=== PATIENT | female | born 1980 | race Caucasian/White ===

== ENCOUNTER 2018-04-09 23:41 | Inpatient (IN) | payer OTHER ==
[2018-04-10] MEDS ORDERED: ceFAZolin IN SWFI 2 GM/20 ML SYRINGE IVP ONE (00:08)
[2018-04-10] MEDS ORDERED: LACTATED RINGERS 1,000 ML IV ONE (00:08)
[2018-04-10] MEDS ORDERED: CITRIC ACID-SODIUM CITRATE 15 ML CUP PO ONE (00:08)
[2018-04-10] MEDS: LACTATED RINGERS 1,000 ML IV SCH ×6 (00:34→20:54)
[2018-04-10 00:39] VITALS: BMI 33.3
--- NOTE | 2018-04-10 00:45 | P.HPOB ---
History of Present Illness H&P Date: 04/10/18 Chief Complaint: Rupture of membranes at 37-5/7 weeks gestation This is a 37-year-old 3 para 1011 woman with an estimated due date of based on first trimester ultrasound who presents with spontaneous rupture of membranes and irregular painful contractions. Her obstetric history significant for previous low transverse section and she is declining trial of labor. She desires repeat section and bilateral tubal ligation. Her has otherwise been uncomplicated. Upon presentation to labor and delivery triage on rupture of membranes is confirmed. She is 1 cm dilated and the cervix is thick. She is maria t every 2-4 minutes spontaneously. heart tones are reactive. Obstetric history: Primary low transverse section in 2005 at 38 weeks for failure to progress. Complicated by postoperative wound infection. Laboratory data: Blood type B positive, antibody screen negative, rubella immune , VDRL nonreactive, hepatitis B surface antigen negative, HIV negative, glucose tolerance testing within normal limits, group B strep culture negative. Review of Systems All systems: negative Past Medical History Past Medical History: No Reported History History of Any Multi-Drug Resistant Organisms: None Reported Past Surgical History: Section Past Anesthesia/Blood Transfusion Reactions: No Reported Reaction Past Psychological History: No Psychological Hx Reported Smoking Status: Never smoker - Past Family History Father Family Medical History: Cancer Medications and Allergies Home Medications Medication Instructions Recorded Confirmed Type No Known Home Medications 04/09/18 04/09/18 History Allergies Allergy/AdvReac Type Severity Reaction Status Date / Time No Known Allergies Allergy Verified 04/09/18 23:59 Exam Vital Signs Temp Pulse Resp BP Pulse Ox 04/10/18 00:20 97.3 F L 79 16 162/72 99 Intake and Output 04/09/18 04/09/18 04/10/18 14:59 22:59 06:59 Other: Weight 82.554 kg This is a uncomfortable, actively laboring female who is visibly gravid. Targeted physical exam is performed. The cervix is 1 cm dilated there was copious amniotic fluid noted. heart tones are reactive. Assessment and Plan (1) Advanced maternal age (AMA) in Current Visit: Yes Status: Acute Code(s): [id number] - SNOMED Code(s): 448576856 (2) History of Current Visit: Yes Status: Acute Code(s): Z98.891 - HISTORY OF UTERINE SCAR FROM PREVIOUS SURGERY SNOMED Code(s): 198812010 (3) Family planning Current Visit: Yes Status: Acute Code(s): Z30.09 - ENCOUNTER FOR OT GENERAL CNSL AND ADVICE ON CONTRACEPTION SNOMED Code(s): 828393848 (4) Spontaneous rupture of membranes Current Visit: Yes Status: Acute Code(s): QHR3161 - SNOMED Code(s): 590635808 Plan: 37-year-old 3 para 1011 woman who presents at 37-5/7 weeks gestation with spontaneous rupture of membranes in early active labor. History of previous low transverse section. She declines trial of labor and requests repeat low transverse section. She desires no further pregnancies and has consented to bilateral tubal ligation. The alternatives for contraception have been reviewed with the patient in the office setting. Risks of the procedure have been reviewed and include bleeding, infection, injury to bowel, bladder, ureters, infant and/or other internal structures. The patient understands these risks and has given consent.
[2018-04-10 00:53] LABS: Basophils # (A) 0.1 k/uL (0-0.2); Basophils % (A) 1 %; Eosinophils # (A) 0.2 k/uL (0-0.7); Eosinophils % (A) 2 %; HCT 38.6 % (34.0-46.0); HGB 12.7 gm/dL (11.4-16.0); Lymphocytes # (A) 2.5 k/uL (1.0-4.8); Lymphocytes % (A) 24 %; MCV 90.9 fL (80.0-100.0); Mean Platelet Volume 7.6; Monocytes # (A) 0.6 k/uL (0-1.0); Monocytes % (A) 5 %; Neutrophils % (A) 66 %; Platelet Count 167 k/uL (150-450); RBC 4.25 m/uL (3.80-5.40); RDW 13.1 % (11.5-15.5); WBC 10.6 k/uL (3.8-10.6)
[2018-04-10] MEDS ORDERED: OXYTOCIN 10 UNIT/ML 1 ML VIAL ONE (01:09)
[2018-04-10] MEDS ORDERED: MORPHINE SULFATE (PF) 0.3 MG/0.3 ML SYR ONE (01:09)
[2018-04-10] MEDS ORDERED: DEXAMETHASONE SOD PHOS (MDV) 100 MG/10 ML VIAL ONE (01:09)
[2018-04-10] MEDS ORDERED: ONDANSETRON 4 MG/2 ML VIAL ONE (01:09)
[2018-04-10] MEDS ORDERED: ePHEDrine SULFATE/0.9% NACL/PF 50 MG/5 ML SYRINGE IV ONE (01:09)
[2018-04-10] MEDS ORDERED: KETOROLAC 30 MG/ML 1 ML VIAL ONE (01:09)
[2018-04-10] MEDS ORDERED: ACETAMINOPHEN TAB 325 MG TAB PO PRN (01:53)
[2018-04-10] MEDS ORDERED: METOCLOPRAMIDE 5 MG/ML 2 ML VIAL IVP PRN (01:53)
[2018-04-10] MEDS ORDERED: NALOXONE 0.4 MG/ML 1 ML VIAL IV PRN (01:53)
[2018-04-10] MEDS ORDERED: diphenhydrAMINE 50 MG/ML 1 ML VIAL IVP PRN ×2 (01:53)
[2018-04-10] MEDS ORDERED: ONDANSETRON 4 MG/2 ML VIAL IVP PRN (01:53)
[2018-04-10] MEDS ORDERED: ZOLPIDEM 5 MG TAB PO PRN (01:53)
[2018-04-10] MEDS ORDERED: diphenhydrAMINE 50 MG CAP PO PRN (01:53)
[2018-04-10] MEDS ORDERED: diphenhydrAMINE 25 MG CAP PO PRN (01:53)
--- NOTE | 2018-04-10 01:53 | P.OP ---
Date of Procedure: 04/10/18 Preoperative Diagnosis: Spontaneous rupture of membranes at 37-5/7 weeks gestation History of previous low transverse section, desires repeat Desires permanent sterility Advanced maternal age Postoperative Diagnosis: Same Procedure(s) Performed: Repeat low transverse section and bilateral tubal ligation with Filshie clips Anesthesia: spinal Surgeon: Loraine Bhat Light Fixture Servicer #1: Hank Perdomo Estimated Blood Loss (ml): 500 IV fluids (ml): 1,000 Urine output (ml): 300 Pathology: none sent (Placenta) Condition: stable Disposition: PACU Indications for Procedure: Rupture of membranes with history of previous section desiring repeat Operative Findings: Female in the vertex occiput transverse position with a nuchal cord 1. Apgars of 9 at 1 minute and 9 at 5 minutes weighing 7 lbs. 3 oz., 3270 g. Intact, three-vessel cord placenta. Normal-appearing uterus, bilateral fallopian tubes and ovaries Description of Procedure: After the patient was met preoperatively and all questions were answered, she was taken to the operating room where spinal anesthetic was administered without incident. She was then positioned, prepped and draped in the dorsal supine position with a leftward tilt. Trinh catheter was placed. After anesthetic was confirmed adequate, a low transverse skin incision was made following the pre-existing scar. This was carried down to the underlying fascia both sharply and with the electrocautery. The fascia was then incised in the midline and extended bilaterally with the Van scissors. The superior aspect of the fascial incision was elevated and the underlying rectus muscles dissected off sharply and with the electrocautery. The inferior aspect of the fascial incision was also elevated and the underlying rectus muscles dissected off sharply. The muscles were adherent in the midline. These were bluntly and the peritoneum was tented up with hemostats. The peritoneum was entered sharply with the Metzenbaum scissors. The peritoneal incision was extended inferiorly and superiorly with good visualization of the bladder. The bladder blade was placed. The vesicouterine peritoneum was identified, tented up and entered sharply, the bladder flap was created both sharply and digitally. A low transverse uterine incision was then made sharply and carried down to the underlying amniotic membranes. Membranes were ruptured and clear fluid was noted. The uterine incision was extended bilaterally bluntly. The 's head was delivered from the incision without difficulty. Nuchal cord 1 was reduced. The nose and mouth were bulb suctioned. The rest of the infant was delivered onto the field without difficulty. And cut and the infant was taken to the warmer. An intact, three-vessel cord placenta was then manually removed and the uterus was exteriorized. The uterus was cleared of all clot and debris. The uterine incision was delineated with Sears clamps. The uterine incision was then closed in a running locked fashion with 0 Vicryl suture. Additional [id number] sutures were placed where necessary along the incision for hemostasis. The right and left fallopian tubes were positively identified and carried out to the fimbriated ends. Filshie clip clips were then applied in the mid ampullary portion of the tubes completely transecting each tube. The uterus was then returned to the abdomen and the gutters were cleared of all clot and debris. The uterine incision was reinspected and Bovie electrocautery was utilized were necessary for hemostasis. The fascial edges, peritoneal edges and rectus muscles were inspected and Bovie electrocautery utilized were necessary for hemostasis. The fascia was then closed in a running fashion with 0 Vicryl suture. The subcuticular tissue was copiously suction irrigated and Bovie electrocautery utilized were necessary for hemostasis. 3-0 Vicryl suture was utilized to reapproximate the subcuticular tissue. The skin was then closed in a subcutaneous fashion with 4-0 Vicryl suture. All counts reported to me as correct by the operating room staff at the end of the procedure. The patient received antibiotics preoperatively and Pitocin following cord clamp. Mother and infant were both transported from the room in stable condition.
[2018-04-10] MEDS ORDERED: OXYTOCIN 20 UNITS/1000 ML NS 1,000 ML IV SCH (02:00)
[2018-04-10] MEDS: SENNOSIDES-DOCUSATE SODIUM 1 EACH TAB PO SCH ×2 (09:22→20:54)
[2018-04-10] MEDS: ceFAZolin IN SWFI 2 GM/20 ML SYRINGE IVP SCH ×2 (09:31→16:43)
[2018-04-10] MEDS: KETOROLAC 30 MG/ML 1 ML VIAL IVP PRN ×2 (16:05→23:55)
[2018-04-11] MEDS: LACTATED RINGERS 1,000 ML IV SCH (02:59)
--- NOTE | 2018-04-11 06:02 | P.PN ---
Progress Note - Text Progress Note Date: 04/11/18 Done 37-year-old female who had a spinal Duramorph placed yesterday. She is doing well. She's had return of lower extremity function. She's had bowel or bladder function. She denies any pruritus or any nausea or vomiting. No lower extremity weakness. Required minimal when necessary medications. Patient will be discharged today.
[2018-04-11 06:43] LABS: Basophils # (A) 0.1 k/uL (0-0.2); Basophils % (A) 1 %; Eosinophils # (A) 0.1 k/uL (0-0.7); Eosinophils % (A) 1 %; HCT 31.2 % (34.0-46.0); HGB 10.6 gm/dL (11.4-16.0); Lymphocytes # (A) 2.3 k/uL (1.0-4.8); Lymphocytes % (A) 24 %; MCH 31.1 pg (25.0-35.0); MCV 91.7 fL (80.0-100.0); Monocytes # (A) 0.6 k/uL (0-1.0); Monocytes % (A) 6 %; Neutrophils # (A) 6.5 k/uL (1.3-7.7); Neutrophils % (A) 67 %; Platelet Count 139 k/uL (150-450); RDW 13.4 % (11.5-15.5); WBC 9.8 k/uL (3.8-10.6)
[2018-04-11] MEDS: HYDROcodone/APAP 5-325MG 1 EACH TAB PO PRN ×4 (06:44→22:58)
[2018-04-11] MEDS: IBUPROFEN 600 MG TAB PO PRN ×3 (08:30→19:46)
[2018-04-11] MEDS: SENNOSIDES-DOCUSATE SODIUM 1 EACH TAB PO SCH ×2 (08:30→19:46)
--- NOTE | 2018-04-11 09:27 | P.PNOBGPC ---
Subjective - Subjective Principal diagnosis: Postop day 1 status post repeat low transverse section and bilater Patient reports: Reports appetite normal, Reports voiding normally, Reports pain well controlled, Reports ambulating normally, Denies nauseated [place]: doing well, nursing well Objective - Vital Signs Latest vital signs: Vital Signs Temp Pulse Resp BP Pulse Ox 04/11/18 08:00 98.5 F 85 18 118/77 99 04/10/18 23:35 98.4 F 66 17 112/65 04/10/18 20:00 97.8 F 64 18 113/64 04/10/18 16:32 98.3 F 87 18 117/63 100 04/10/18 13:00 97.9 F 82 16 131/72 100 Intake and Output 04/10/18 04/11/18 04/11/18 22:59 06:59 14:59 Output Total 200 Balance -200 Output: Urine 200 Other: Voiding Method Indwelling Catheter # Voids 3 1 - Exam Extremities: Present: normal, edema (1+) Abdomen: Present: normal appearance, soft, tenderness. Absent: distention Incision: Present: normal, dry, intact. Absent: erythematous Uterus: Present: normal, firm. Absent: tenderness - Labs Labs: Abnormal Lab Results - Last 24 Hours (Table) 04/11/18 Range/Units 06:29 RBC 3.40 L (3.80-5.40) m/uL Hgb 10.6 L (11.4-16.0) gm/dL Hct 31.2 L (34.0-46.0) % Plt Count 139 L (150-450) k/uL Assessment and Plan (1) Advanced maternal age (AMA) in Current Visit: Yes Status: Acute Code(s): [id number] - SNOMED Code(s): 527645737 (2) History of Current Visit: Yes Status: Acute Code(s): Z98.891 - HISTORY OF UTERINE SCAR FROM PREVIOUS SURGERY SNOMED Code(s): 074176928 (3) Family planning Current Visit: Yes Status: Acute Code(s): Z30.09 - ENCOUNTER FOR OT GENERAL CNSL AND ADVICE ON CONTRACEPTION SNOMED Code(s): 594133183 (4) Spontaneous rupture of membranes Current Visit: Yes Status: Acute Code(s): WRT3254 - SNOMED Code(s): 380813102 Plan: Postop day 1 status post repeat low transverse section and bilateral tubal ligation. Recovering well. Routine care. Anticipate discharge home tomorrow.
[2018-04-12] MEDS: IBUPROFEN 600 MG TAB PO PRN ×2 (01:56→07:52)
[2018-04-12] MEDS: HYDROcodone/APAP 5-325MG 1 EACH TAB PO PRN ×2 (05:07→11:27)
[2018-04-12] MEDS: SENNOSIDES-DOCUSATE SODIUM 1 EACH TAB PO SCH (07:52)
[2018-04-12 08:06] VITALS: BP 109/64; PULSE 71; RESP 18; TEMP 97.8
--- NOTE | 2018-04-12 09:39 | P.DS ---
Providers Date of admission: 04/10/18 00:09 Expected date of discharge: 04/12/18 Attending physician: Loraine Bhat Primary care physician: Stated None - Discharge Diagnosis(es) (1) Advanced maternal age (AMA) in Current Visit: Yes Status: Acute (2) History of Current Visit: Yes Status: Acute (3) Family planning Current Visit: Yes Status: Acute (4) Spontaneous rupture of membranes Current Visit: Yes Status: Acute Hospital Course: This is a 37-year-old 3 now para 2 woman who presented at 37-5/7 weeks gestation with spontaneous rupture of membranes and early labor. She to history of a prior primary low transverse section in the past and requested repeat low transverse section and bilateral tubal ligation for permanent contraception. Please see the admission history and physical for details. Following admission she did go to the operating room where she had an uncomplicated repeat low transverse section. Findings at the time of surgery were significant for a female infant weighing 7 lbs. 3 oz. with Apgars of 9 at 1 minute and 9 at 5 minutes. She underwent tubal ligation. Her post operative course was unremarkable. She had some nausea in the first 12 hours postoperatively however this did spontaneously resolve. By postoperative day # 1 her vital signs were stable and her postop hemoglobin was within normal limits. The postoperative day #2 she continued to do very well. Her incision was well healing. She had scant lochia. She is breast-feeding successfully and her pain was well-controlled. She was therefore discharged home with routine instructions for postoperative care and follow-up. Procedures: Repeat low transverse section and bilateral tubal ligation Patient Condition at Discharge: Good Plan - Discharge Summary New Discharge Prescriptions: New Ibuprofen [Motrin] 600 mg PO Q6HR PRN tab PRN Reason: Mild Pain Or Fever >= 100.5 Sennosides-Docusate Sodium [Senokot-S] 2 each PO BID@0800,1999 tab Discharge Medication List Ibuprofen [Motrin] 600 mg PO Q6HR PRN tab 04/12/18 [Rx] Sennosides-Docusate Sodium [Senokot-S] 2 each PO BID@0800,1999 tab 04/12/18 [Rx ] Follow up Appointment(s)/Referral(s): Loraine Bhat MD [STAFF PHYSICIAN] - 2 Weeks Activity/Diet/Wound Care/Special Instructions: Follow-up in 2 weeks after surgery in the office. Call the office with any concerning signs or symptoms including fever greater than 101, severe abdominal pain, heavy vaginal bleeding, signs of wound infection, increased swelling or redness of the lower extremities, signs of depression. No driving for 2 weeks after surgery. No heavy lifting or vigorous activity until reevaluated in the office. No intercourse for 6 weeks after delivery. Discharge Disposition: HOME SELF-CARE
--- NOTE | 2018-04-13 08:43 | P.MSEPDOC ---
Presenting Problems - Arrival Data Date of Arrival on Unit: 04/10/18 Time of Arrival on Unit: 00:09 Mode of Transport: Wheelchair - Complaint OB-Reason for Admission/Chief Complaint: Rule Out SROM Medical History - Information : 3 Para: 1 Term: 1 : 0 Abortions: Spontaneous or Elective: 1 Number of Living Children: 1 - Gestational Age Gestational Age by CORBY (wks/days): 37 Weeks and 5 Days - History Complications: Prior Review of Systems - Review of Systems Constitutional: No problems Breast: No problems ENT: No problems Cardiovascular: No problems Respiratory: No problems Gastrointestinal: No problems Genitourinary: No problems Musculoskeletal: No problems Neurological: No problems Skin: No problems Vital Signs - Temperature Temperature: 97.8 F Temperature Source: Oral - Pulse Right Brachial Pulse Rate: 71 Pulse Assessment Method: Auscultation - Respirations Respiratory Rate: 18 Oxygen Delivery Method: Room Air - Blood Pressure Right Arm Blood Pressure: 109/64 Blood Pressure Mean: 79 Blood Pressure Source: Automatic Cuff Medical Screen Scoring (Pre) - Cervical Exam Dilation: 1-3 cm = 1 Membranes: Ruptured = 3 - Uterine Contractions Frequency: > 5 minutes apart = 1 - Maternal Vital Signs Maternal Temperature: N/A Maternal Blood Pressure: N/A Signs of Preeclampsia: N/A Maternal Respirations: N/A - Pain Assessment Pain Location and Character: Lower, Abdomen Pain Scale Used: Numeric (1 - 10) Pain Intensity: 5 Pain Description: *Acute, Cramping Pain Frequency: Intermittent Pain Duration Units: Minutes Pain Aggravating Factors: Contractions - Maternal Trauma Maternal Trauma: N/A - Assessment Baseline FHR: 120 Heart Rate - NICHD Category: Category I (Normal) = 0 NST: Reactive Position: N/A Station: N/A - Total Score Total Score (Pre): 5 - Level of Risk Level of Risk: Low (0-5) Physician Notification (Pre) - Physician Notified Physician Notified Date: 04/10/18 Physician Notified Time: 00:08 Physician/Practitioner Notifed:: Dr. Bhat Spoke With: Dr. Bhat New Order Received: Yes - Notification Comment Comment: Dr. Bhat called and given report on pt in tr. Pt c/o. Positive amnisure. Fht with moderate variability with accels present. Vag exam of /-2. scheduled for r c/s. Orders recieved to admit pt and prep for r c/s. Disposition - Disposition OB Disposition: Admit, LDRP Suite Discharge Date: 04/12/18 Discharge Time: 11:30 I agree with the RN Medical Screening Exam: Yes Risk & Benefit of care provided described in d/c instruction: Yes Diagnosis: 37 WEEKS GESTATION OF
== END 2018-04-12 11:30 | disposition home or self-care (01) | DRG 785 ==
LOC: FBPOP 23:41 → 4FBP 04-10 00:09
PROVIDERS: ADMIT Obstetrics & Gynecology; ATTEND Obstetrics & Gynecology
PROC: 0UL70CZ Occlusion of Bilateral Fallopian Tubes with Extraluminal Device, Open Approach (ICD-10-PCS; 2018-04-10)
PROC: 10D00Z1 Extraction of Products of Conception, Low, Open Approach (ICD-10-PCS; principal; 2018-04-10 01:09)
DX: O34.211 Maternal care for low transverse scar from previous cesarean delivery (principal); O75.82 Onset (spontaneous) of labor after 37 completed weeks of gestation but before 39 completed weeks gestation, with delivery by (planned) cesarean section; N85.8 Other specified noninflammatory disorders of uterus; O69.81X0 Labor and delivery complicated by cord around neck, without compression, not applicable or unspecified; Z3A.37 37 weeks gestation of pregnancy; Z37.0 Single live birth; Z30.2 Encounter for sterilization; Z80.9 Family history of malignant neoplasm, unspecified
CPT/HCPCS: 59025; 84112; 85025; 86850; 86900; 86901; 99213

== ENCOUNTER → 2022-02-13 | Outpatient (CLI) | payer OTHER ==
--- NOTE | 2022-02-13 16:07 | XR ---
EXAMINATION TYPE: XR foot complete LT DATE OF EXAM: 02/13/2022 COMPARISON: None HISTORY: Pain first metatarsal phalangeal joint after injury TECHNIQUE: 3 view left foot FINDINGS: No acute fracture or dislocation is evident. Soft tissues are normal. Plantar calcaneal alfredo l spur is present. Small Achilles tendon calcaneal heel spurs present. Follow up exams can be performed 7-10 days from acute trauma for continued pain. IMPRESSION: 1. No acute osseous abnormality left foot. 2. Calcaneal heel spurs
== END | disposition home or self-care (01) ==
LOC: RADXRMAIN 14:16
PROVIDERS: ATTEND Physician Assistant
DX: M77.32 Calcaneal spur, left foot (principal); M79.672 Pain in left foot

== ENCOUNTER 2022-04-29 06:00 | Day surgery (SDC) | payer BC, OTHER ==
[2022-04-22 16:03] VITALS: BMI 26.2
--- NOTE | 2022-04-28 22:05 | HP ---
HISTORY AND PHYSICAL PROCEDURE DATE: 04/29/2022. HISTORY: This is a 41-year-old 3, para 2-0-1-2 woman with a history of menorrhagia. She is scheduled to undergo diagnostic hysteroscopy with NovaSure endometrial ablation. She does have cervical stenosis precluding endometrial biopsy in the office. 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 ALLERGIES: None. MEDICATIONS: None. PAST MEDICAL HISTORY: Menorrhagia. PAST SURGICAL HISTORY: section x2 and tubal ligation. Tonsillectomy as a child. PAST DIRECTOR OF RESIDENCE LIFE HISTORY: She is a 3, para 2 with history of 2 term sections. The second 1 with a tubal ligation and 1 early trimester miscarriage. SOCIAL HISTORY: She is . Negative for tobacco, alcohol, and drug use. FAMILY HISTORY: Noncontributory. REVIEW OF SYSTEMS: Negative except for that described above. PHYSICAL EXAMINATION: VITAL SIGNS: Blood pressure 110/74, heart rate 84, weight 143 pounds, and height 5 feet 2-1/2 inches. GENERAL: This is a pleasant female, in no acute distress. HEENT: Unremarkable with no palpable lymphadenopathy or thyromegaly. LUNGS: Clear to auscultation bilaterally. HEART: Regular rate and rhythm. ABDOMEN: Slim, soft and nontender. DIRECTOR OF RESIDENCE LIFE: On pelvic examination, she has normal female external genitalia. On speculum exam, the cervix is displaced anteriorly and to the left. There is grossly normal- appearing cervix was pinpoint cervical os. On bimanual examination, the uterus is small, freely mobile and in the midline with no palpable adnexal masses. Pelvic ultrasound dated 03/11/2022 shows uterus measuring 8.6 x 4.2 x 4.0 cm with an endometrial stripe thickness of 3.3 mm. Normal bilateral adnexa. ASSESSMENT: A 41-year-old 3, para 2 woman with menorrhagia who desires definitive management with endometrial ablation. She unfortunately does have some cervical stenosis and a history of 2 previous sections. She will be pretreated with Cytotec the night pre procedure in attempt to dilate the cervix. She is warned that if the hysteroscope could not be advanced or the endometrial ablation device deployed normally, the procedure will not be able to continue. Risks of the procedure are reviewed and include bleeding, transfusion, infection, uterine perforation with possible injury to pelvic and abdominal structures. The patient understands these risks and agrees to proceed. She is scheduled for diagnostic hysteroscopy with possible NovaSure endometrial ablation on 04/29/2022. MMODL / IJN: [id number] /
[~2022-04-29 06:00] MED LIST: DEXAMETHASONE SOD PHOSPHATE 4 MG/ML 1 ML VIAL IV ONE; HYDROmorphone 0.5 MG/0.5 ML SYRINGE IVP PRN; LACTATED RINGERS 1,000 ML IV SCH; LIDOCAINE 1% (10MG/ML) FOR IV START INTRADERMA PRN; ONDANSETRON 4 MG/2 ML VIAL IVP ONE; Pre Op ABX Message 1 EACH MISC MISCELLANE ONE
[2022-04-29] MEDS ORDERED: MIDAZOLAM 2 MG/2 ML VIAL ONE (07:28)
[2022-04-29] MEDS ORDERED: KETOROLAC 15 MG/ML 1 ML VIAL ONE (07:28)
[2022-04-29] MEDS ORDERED: LIDOCAINE 2% INJ 20 MG/ML (2 ML VIAL) ONE (07:28)
[2022-04-29] MEDS ORDERED: fentaNYL (PF) 50 MCG/ML 2 ML AMP ONE (07:28)
[2022-04-29] MEDS ORDERED: PROPOFOL 10 MG/ML 20 ML VIAL IV ONE (07:28)
[2022-04-29] MEDS ORDERED: LIDOCAINE 1%-EPI 1:100,000 20 ML VIAL SUBMUCOSAL ONE ×2 (07:44)
--- NOTE | 2022-04-29 08:07 | P.OP ---
Date of Procedure: 04/29/22 Preoperative Diagnosis: Menorrhagia and cervical stenosis Postoperative Diagnosis: Same Procedure(s) Performed: Cervical dilation, diagnostic hysteroscopy and NovaSure endometrial ablation Anesthesia: MAC, local Surgeon: Loraine Bhat Estimated Blood Loss (ml): 5 IV fluids (ml): 400 Urine output (ml): 50 Pathology: none sent Condition: stable Disposition: PACU Indications for Procedure: Menorrhagia Operative Findings: Anterior distal placed cervix flush with the anterior left vaginal apex. Moderate cervical stenosis with normal-appearing endometrial cavity with fluffy endometrium. Bilateral tubal ostia visualized. Description of Procedure: After the patient was met in the preoperative holding area and all questions were answered, she is taken the operating room where anesthetic was administered without incident. Appropriate timeout procedure was undertaken. Exam under anesthetic was performed and the uterus is noted to be anteverted with the cervix to the left apex of the vagina. Weighted speculum was placed in the vagina and the cervix was grasped anteriorly with a single-tooth tenaculum. The cervix was pinpoint and the smallest Hegar dilator was utilized to gently and sequentially dilate the cervix. This was accomplished to the point to allow for passage of the diagnostic hysteroscope. Under direct visualization the cervix was further dilated with hydro-pressure. The intrauterine cavity was then visualized and fluffy endometrium was appreciated. The hysteroscope was then removed and the cervix was further dilated to allow for passage of the NovaSure endometrial ablation device. The device was inserted and deployed with a cavity length of 5.5 and a width of 3.0. Cavity assessment test was passed and the device was enabled for a treatment cycle of 64 seconds at a power of 90. Following cessation of the treatment cycle the device was removed and the hysteroscope was reintroduced. Complete desiccation of the endometrium was appreciated. Hysteroscope was then removed as was the tenaculum. The cervix was observed and no active bleeding was noted. The remainder of the instruments removed from the vagina. The patient was awoken from anesthetic and transported to the recovery area in good condition. All counts reported to me as correct by the operating room staff. On diagnostic hysteroscopy there was fluffy endometrium noted with no gross intracavitary lesions appreciated. Postprocedure complete desiccation of the endometrium was noted.
[2022-04-29 08:17] VITALS: TEMP 97.3
[2022-04-29] MEDS: LACTATED RINGERS 1,000 ML IV SCH ×2 (09:14→09:31)
[2022-04-29 10:46] VITALS: RESP 16
[2022-04-29 11:35] VITALS: BP 91/46; PULSE 60
== END 2022-04-29 11:50 | disposition home or self-care (01) ==
LOC: OR 06:00
PROVIDERS: ATTEND Obstetrics & Gynecology
DX: N92.0 Excessive and frequent menstruation with regular cycle (principal); F41.9 Anxiety disorder, unspecified; M48.02 Spinal stenosis, cervical region; Z98.891 History of uterine scar from previous surgery; Z79.899 Other long term (current) drug therapy
CPT/HCPCS: 81025; 58563; J2250; J1100; J2405; J3010; J1885; J2704; J1170; J2001

== ENCOUNTER → 2022-09-27 | Outpatient (CLI) | payer BC ==
[2022-09-27 08:49] LABS: HCT 38.3 % (34.0-46.0); HGB 13.2 gm/dL (11.4-16.0); MCH 31.8 pg (25.0-35.0); MCHC 34.5 g/dL (31.0-37.0); MCV 92.2 fL (80.0-100.0); Mean Platelet Volume 7.8; Platelet Count 180 k/uL (150-450); RBC 4.16 m/uL (3.80-5.40)
[2022-09-27 09:02] LABS: ALT 18 U/L (4-34); AST 25 U/L (14-36); African American GFR (CKD) >90 (>60 ml/min/1.73 sqM); Albumin 4.4 g/dL (3.5-5.0); Albumin/Globulin Ratio 1.4; Alkaline Phosphatase 35 U/L (38-126); Anion Gap 5 mmol/L; Blood Urea Nitrogen 10 mg/dL (7-17); Carbon Dioxide 29 mmol/L (22-30); Chloride 105 mmol/L (98-107); Globulin 3.1 g/dL; Glucose 95 mg/dL (74-99); Non-African American GFR(CKD) >90 (>60 ml/min/1.73 sqM); Potassium 4.2 mmol/L (3.5-5.1); Sodium 139 mmol/L (137-145); Total Bilirubin 0.6 mg/dL (0.2-1.3); Total Protein 7.5 g/dL (6.3-8.2)
[2022-09-27 13:35] LABS: Chol/HDL Ratio 2.68 Ratio; LDL Cholesterol,Calculated 104.7 mg/dL (0.0-131.0); VLDL Calculation 11.28 mg/dL (5.00-40.00)
== END | disposition home or self-care (01) ==
LOC: LABWHC1 08:30
PROVIDERS: ATTEND Family Medicine
DX: Z00.00 Encounter for general adult medical examination without abnormal findings (principal)
CPT/HCPCS: 36415; 80053; 80061; 85027